=== PATIENT | female | born 1990 | race Caucasian/White ===

== ENCOUNTER 2016-06-24 21:02 | Inpatient (IN) ==
[2016-06-24 21:28] LABS: URINE CULTURE PL NEEDED? NO; URINE SOURCE CLEAN CATCH
[2016-06-24] MEDS ORDERED: NS 1,000 ML IV ONE (21:36)
--- NOTE | 2016-06-24 21:40 | PROVIDER DOCUMENTATION ---
HPI-General Adult - General Chief Complaint: High Blood Sugar Stated Complaint: BLOOD SUGAR ISSUES,FEVER Time Seen by Provider: 06/24/16 21:30 Source: patient Allergies/Adverse Reactions: Patient Allergies Allergy/AdvReac Type Severity Reaction Status Date / Time cefdinir Allergy HIVES Verified 02/27/16 11:05 amoxicillin AdvReac HIVES Verified 06/24/16 21:10 Home Medications: Home Medication List Medication Instructions Recorded Confirmed Last Taken Type Norethindrone-E.estradiol-Iron 1 each PO DAILY 02/27/16 02/27/16 02/27/16 History [Fernanda Fe 1-20 Tablet] Subcutaneous Insulin Pump [Insulin 1.4 units SUBQ ORDERED 02/27/16 02/27/16 02/26/16 History Pump] - History of Present Illness -Gen Adult Nature of Presenting Problems: 25 year old F presents to the ED with a cc of high blood sugar. PT states that her pump malfunctioned today due to her needle being bent. PT states that she called her Director Process Improvement due to her FSBS high and was told to move her pump around and take a shot of insulin. Pt states that she has had some vomiting and urinary frequency today. Severity: reports: mild Onset/Duration: reports: this afternoon Timing: reports: still present Context/Activities at Onset: reports: none Associated Symptoms: reports: vomiting Similar Symptoms Previously?: No Recently seen or treated by another doctor?: No - Diabetes Related Context Context: reports: high blood sugar Review of Systems - Adult - REVIEW OF SYSTEMS - ADULT Constitutional: denies: chills, fever Eyes: reports: no symptoms reported Ears, Nose, Mouth & Throat: reports: no symptoms reported Cardiovascular: reports: no symptoms reported Respiratory: reports: no symptoms reported Gastrointestinal: reports: nausea, vomiting Genitourinary: reports: frequency. denies: dysuria, hematuria Musculoskeletal: denies: muscle aches, muscle weakness Integumentary: denies: skin sores/ulcer, skin thickening Neurological: reports: no symptoms reported Psychiatric: reports: no symptoms reported Endocrine: reports: no symptoms reported Hematologic/Lymphatic: reports: no symptoms reported Allergic/Immunologic: reports: no symptoms reported All Other Systems: Reviewed and Negative Past History - Adult - PAST MEDICAL HISTORY-ADULT Review of Records: reports: Nursing Assessment Review, Medications Reviewed Major Childhood Illnesses: reports: denies history Endocrine/Immune: reports: Diabetes Diabetes controlled by:: Insulin Dependent - PRIOR SURGERIES/PROCEDURES Surgical/Procedure History: reports: orthopedic (extremity) - IMMUNIZATION STATUS Childhood Immunizations: See Nurse Assessment Flu Vaccine: See Nurse Assessment - SOCIAL HISTORY Smoking: non-smoker Substance Use: none/never Alcohol Use Frequency: never Physical Exam-General - PHYSICAL EXAM-ADULT Initial Vital Signs Reviewed: Yes - CONSTITUTIONAL General Appearance: appears well, alert, no apparent distress, obese - RESPIRATORY Respiratory: chest non-tender, lungs clear, normal breath sounds - CARDIOVASCULAR Cardiovascular: normal peripheral pulses, regular rate, rhythm, no edema - GASTROINTESTINAL (ABDOMEN) Abdominal Exam: non tender, soft - MUSCULOSKELETAL Extremity: normal inspection - SKIN Integumentary: normal color, normal turgor, warm/dry - PSYCHIATRIC Psych/Mental Status: normal mood/affect, normal thought content, normal thought process, oriented x 3 Progress - PLAN OF CARE/RESULTS Progress/Plan/Lab Results: plan of care: labs, fluids Orders Category Date Time Status ABG [RESP] Routine Lab 06/24/16 22:12 Completed ACETONE SERUM [CHEM] Stat Lab 06/24/16 22:05 Completed CBC WITH DIFF [HEME] Stat Lab 06/24/16 22:05 Completed COMPREHENSIVE METABOLIC PANEL [CHEM] Stat Lab 06/24/16 22:[address] W/POSS RFLX CULT [URINALYSIS] Stat Lab 06/24/16 21:10 Completed 0.9% Sodium Chloride Inj [Ns] 1,000 ml Med 06/24/16 21:36 Discontinued IV 999 mls/hr Laboratory Tests 06/24/16 06/24/16 06/24/16 21:10 22:05 22:05 WBC 16.24 H RBC 4.84 Hgb 14.7 Hct 42.0 MCV 86.8 MCH 30.4 MCHC 35.0 RDW Std Deviation 12.9 Plt Count 374 MPV 9.3 Immature Gran % (Auto) 0.2 Neut % (Auto) 87.8 H Lymph % (Auto) 8.9 L Daniels % (Auto) 2.9 Eos % (Auto) 0.0 Baso % (Auto) 0.2 Immature Gran # (Auto) 0.04 Neut # (Auto) 14.25 H Lymph # (Auto) 1.45 Daniels # (Auto) 0.47 Eos # (Auto) 0.00 Baso # (Auto) 0.03 Segmented Neutrophils 88 H Band Neutrophils 3 H Lymphocytes 8 L Monocytes 1 Anisocytosis 1+ Specimen Type Sample Site pH pCO2 pO2 HCO3 Base Excess Oxyhemoglobin ABG O2 Sat (Calculated) ABG O2 Saturation ABG Carboxyhemoglobin ABG Methemoglobin Luis Manuel Test A-a O2 Difference Total Hemoglobin Lactate Blood Gas Modality FiO2 % Sodium 129 L Potassium 4.5 Chloride 94 L Carbon Dioxide 14 L Anion Gap 21 BUN 18 Creatinine 0.8 Estimated GFR/1.73 m2 > 60 BUN/Creatinine Ratio 23 Glucose 286 H Calculated Osmolality 271 Calcium 9.4 Total Bilirubin 0.60 AST 12 ALT 22 Alkaline Phosphatase 88 Total Protein 7.6 Albumin 4.1 Globulin 4.0 Albumin/Globulin Ratio 1.0 Urine Source CLEAN CATCH Urine Color YELLOW Urine Clarity CLEAR Urine pH 5.0 Ur Specific [place] 1.020 Urine Protein TRACE A Urine Ketones 3+(Large) A Urine Blood TRACE Urine Nitrite NEGATIVE Urine Bilirubin NEGATIVE Urine Urobilinogen NORMAL Urine Microscopic RBC <10 Urine WBC NEGATIVE Urine Microscopic WBC <10 Ur Epithelial Cells <10 Urine Bacteria 1+ Urine Yeast PRESENT Urine Glucose 3+(500 mg/dL) A Acetone Level 06/24/16 06/24/16 22:05 22:12 WBC RBC Hgb Hct MCV MCH MCHC RDW Std Deviation Plt Count MPV Immature Gran % (Auto) Neut % (Auto) Lymph % (Auto) Daniels % (Auto) Eos % (Auto) Baso % (Auto) Immature Gran # (Auto) Neut # (Auto) Lymph # (Auto) Daniels # (Auto) Eos # (Auto) Baso # (Auto) Segmented Neutrophils Band Neutrophils Lymphocytes Monocytes Anisocytosis Specimen Type ARTERIAL Sample Site R BRACHIAL pH 7.33 L pCO2 31 L pO2 68 HCO3 18.2 L Base Excess -8.4 L Oxyhemoglobin 92.4 L ABG O2 Sat (Calculated) 18.6 ABG O2 Saturation 96.0 ABG Carboxyhemoglobin 2.50 ABG Methemoglobin 1.2 Luis Manuel Test YES A-a O2 Difference 43.0 Total Hemoglobin 14.3 Lactate 1.10 Blood Gas Modality ROOM AIR FiO2 % 21.0 Sodium Potassium Chloride Carbon Dioxide Anion Gap BUN Creatinine Estimated GFR/1.73 m2 BUN/Creatinine Ratio Glucose Calculated Osmolality Calcium Total Bilirubin AST ALT Alkaline Phosphatase Total Protein Albumin Globulin Albumin/Globulin Ratio Urine Source Urine Color Urine Clarity Urine pH Ur Specific [place] Urine Protein Urine Ketones Urine Blood Urine Nitrite Urine Bilirubin Urine Urobilinogen Urine Microscopic RBC Urine WBC Urine Microscopic WBC Ur Epithelial Cells Urine Bacteria Urine Yeast Urine Glucose Acetone Level MODERATE A Vital Signs - 24 hr 06/24/16 21:06 Temperature 98 F Pulse Rate 96 H Respiratory 18 Rate Blood Pressure 156/91 O2 Sat by Pulse 100 Oximetry Pt/Family given results. Pt will be admitted to the [facility]. PT/Family in agreement with plan of care. - CONSULTS/PCP/HOSPITALIST Notification #1 *Consult/PCP/Hospitalist*: Dr. Morgan- [facility] [place] Time Discussed: 23:09 Consult Disposition: Admit Attestation - Scribe Verification/Attestation Scribe:: Karen Sheppard Acting as Scribe for:: Delmar Davis Scribe documention review:: This chart was documented by a scribe and accurately reflects the service the provider performed and the decisions made by the provider. Physician Attestation - Physician Attestation I, the provider, attest to the following statement:: Delmar Davis Physician documentation Attestation:: This documentation recorded by the scribe accurately reflects the service I personally performed and the decisions made by me.
[2016-06-24 21:54] LABS: BILIRUBIN URINE NEGATIVE (NEGATIVE); BLOOD URINE TRACE (NEGATIVE); CLARITY CLEAR (CLEAR); COLOR YELLOW; LEUKOCYTES URINE NEGATIVE (NEGATIVE); NITRITE URINE NEGATIVE (NEGATIVE); PROTEIN URINE TRACE mg/dL (NEGATIVE); UROBILINOGEN URINE NORMAL
[2016-06-24 21:56] LABS: URINE WBC <10 /HPF (<10)
[2016-06-24 21:57] LABS: URINE EPITHELIAL CELLS <10 /HPF (<10); URINE RBC <10 /HPF (<10)
[2016-06-24 22:28] LABS: AGAP 21; ALBUMIN 4.1 g/dL (3.5-5.0); ALKALINE PHOSPHATASE 88 U/L (32-104); BUN 18 mg/dL (8-22); CALCIUM 9.4 mg/dL (8.8-10.2); CHLORIDE 94 mmol/L (98-107); COSMO 271; GOT 12 U/L (10-30); GPT 22 U/L (10-36); POTASSIUM 4.5 mmol/L (3.5-5.1); SODIUM 129 mmol/L (136-145); TCO2 14 mmol/L (25-35); TOTAL PROTEIN 7.6 g/dL (6.3-8.3)
[2016-06-24 22:51] LABS: BASO% 0.2 % (0.0-0.8); HEMOGLOBIN 14.7 g/dL (12.0-16.0); IMM GRAN# 0.04 X1000 (0.0-0.04); IMM GRAN% 0.2 % (0.0-0.5); LYMPH# 1.45 X1000 (1.2-3.4); LYMPH% 8.9 % (20.5-51.1); MANUAL DIFF NEEDED? YES; MCH 30.4 PG (27-31); MCV 86.8 FL (81-99); MONO# 0.47 X1000 (0.11-0.59); MONO% 2.9 % (1.7-9.3); MPV 9.3 FL (7.4-10.4); NEUT% 87.8 % (42.2-75.2); PLT 374 X1000 (130-400); RBC 4.84 XMIL (4.2-5.4)
[2016-06-24 22:52] LABS: BANDS 3 % (0-1); LYMPHS 8 % (21-51); MONO 1 % (1-9)
[2016-06-24 22:58] LABS: BE -8.4 mmoll (-3.0-3.0); BLOOD TYPE ARTERIAL; DRAW SITE R BRACHIAL; METHB 1.2 % (0.0-1.5); O2(CT) 18.6 mL/dL (15.0-23.0); PCO2(98.6) 31 mmHg (35-45); PO2(98.6) 68 mmHg (60-100); SAMPLE BLOOD; THB 14.3 g/dL (11.5-17.4); pH(98.6) 7.33 (7.35-7.45)
[2016-06-24 23:01] LABS: ALLEN TEST YES; MODALITY ROOM AIR
[2016-06-24] MEDS ORDERED: ZOFRAN IV PRN (23:12)
[2016-06-24] MEDS ORDERED: NS 1,000 ML IV SCH (23:15)
[2016-06-24] MEDS ORDERED: NS 1,000 ML ONE (23:25)
[2016-06-24] MEDS ORDERED: HUMULIN R DOSE (PARKWAY) ONE (23:27)
[2016-06-24] MEDS ORDERED: NS 100 ML ONE (23:28)
[2016-06-24] MEDS ORDERED: HUMULIN R (PARKWAY) 100 UNITS in NS 100 ML IV SCH (23:45)
[2016-06-24] MEDS ORDERED: NORCO-5 PO ONE (23:50)
[2016-06-25] MEDS ORDERED: SODIUM PHOSPHATE 30 MMOL in D5W 250 ML IV PRN (01:13)
[2016-06-25] MEDS: NS 1,000 ML IV SCH ×7 (01:13→14:53)
[2016-06-25] MEDS ORDERED: SODIUM BICARBONATE 8.4% 100 MEQ in D5W 500 ML IV PRN (01:13)
[2016-06-25] MEDS ORDERED: SODIUM BICARBONATE 8.4% 50 MEQ in D5W 250 ML IV PRN (01:13)
[2016-06-25] MEDS ORDERED: MAGNESIUM SULFATE 2 GM/S.W.I. 50 ML IV PRN (01:13)
[2016-06-25] MEDS ORDERED: TYLENOL PO PRN (01:13)
[2016-06-25] MEDS ORDERED: D50W SYRINGE IV PRN (01:13)
[2016-06-25] MEDS ORDERED: ZOFRAN IV PRN (01:13)
[2016-06-25] MEDS ORDERED: HUMULIN R 100 UNIT in NS 99 ML IV SCH (01:13)
[2016-06-25] MEDS ORDERED: POTASSIUM CHLORIDE 20 MEQ/SWI 100 ML IV PRN ×2 (01:36→01:40)
[2016-06-25 02:30] LABS: BE -5.8 mmoll (-3.0-3.0); BLOOD TYPE ARTERIAL; DRAW SITE R BRACHIAL; METHB 0.9 % (0.0-1.5); O2(CT) 17.5 mL/dL (15.0-23.0); PCO2(98.6) 32 mmHg (35-45); PO2(98.6) 110 mmHg (60-100); SAMPLE BLOOD; SAO2 99.6 % (95.0-100.0); THB 12.8 g/dL (11.5-17.4); pH(98.6) 7.37 (7.35-7.45)
[2016-06-25 02:32] LABS: ALLEN TEST YES; MODALITY ROOM AIR
[2016-06-25] MEDS: D5 NS + KCL 20 MEQ 1,000 ML IV SCH ×3 (02:33→13:32)
[2016-06-25 02:49] LABS: HEMOGLOBIN A1C 8.5 % (4.8-6.0)
[2016-06-25 03:04] LABS: MAGNESIUM 1.6 mg/dL (1.5-2.7)
[2016-06-25 03:06] LABS: AGAP 11; BUN 14 mg/dL (8-22); CALCIUM 7.7 mg/dL (8.8-10.2); CHLORIDE 106 mmol/L (98-107); COSMO 272; SODIUM 133 mmol/L (136-145); TCO2 16 mmol/L (25-35)
[2016-06-25 06:28] LABS: AGAP 9; BUN 13 mg/dL (8-22); CALCIUM 7.6 mg/dL (8.8-10.2); CHLORIDE 105 mmol/L (98-107); COSMO 270; MAGNESIUM 2.5 mg/dL (1.5-2.7); POTASSIUM 4.1 mmol/L (3.5-5.1); SODIUM 132 mmol/L (136-145); TCO2 18 mmol/L (25-35)
[2016-06-25 10:54] LABS: AGAP 11; BUN 13 mg/dL (8-22); CALCIUM 7.7 mg/dL (8.8-10.2); CHLORIDE 104 mmol/L (98-107); COSMO 277; MAGNESIUM 2.2 mg/dL (1.5-2.7); POTASSIUM 3.7 mmol/L (3.5-5.1); SODIUM 134 mmol/L (136-145); TCO2 19 mmol/L (25-35)
[2016-06-25 15:18] LABS: AGAP 10; BUN 14 mg/dL (8-22); CALCIUM 7.9 mg/dL (8.8-10.2); CHLORIDE 105 mmol/L (98-107); COSMO 280; POTASSIUM 3.8 mmol/L (3.5-5.1); SODIUM 135 mmol/L (136-145); TCO2 20 mmol/L (25-35)
[2016-06-25 15:27] VITALS: BP 103/67
--- NOTE | 2016-06-25 16:49 | HISTORY AND PHYSICAL ---
PRIMARY CARE PHYSICIAN: Dr. Delgadillo. CHIEF COMPLAINT: High blood sugar. HISTORY OF PRESENTING ILLNESS: This is a 25-year-old female, who presented to the emergency department stating her sugar was high and that her pump had malfunctioned earlier in the day due to her needle being bent. She had called her staff counsel and he told her to move the pump around and take a shot of insulin. States that she had vomiting and urinary frequency. So, she came to the emergency room for evaluation. When she arrived, she had a white blood cell count of 16.24. Sodium was 129, chloride 94. Blood sugar was 286. She had moderate acetone. She was placed initially on an insulin drip and was admitted to the intensive care unit for further evaluation and treatment. PAST MEDICAL HISTORY: Type 1 diabetes. PAST SURGICAL HISTORY: Finger surgery in 2011. FAMILY HISTORY: Her dad is a type 1 diabetic. SOCIAL HISTORY: She currently lives with family. Denied any tobacco, alcohol, or illicit drug use. ALLERGIES: Cefdinir and amoxicillin. HOME MEDICATIONS: She takes Fernanda Fe 1-20 one p.o. daily. Insulin pump as directed. LABORATORY DATA: Showed a white blood cell count of 16.24, hemoglobin 14.7, hematocrit 42, platelets 374. ABG showed a pH of 7.33, pCO2 of 31, PO2 68, bicarbonate of 18.2. Sodium was 129, potassium 4.5, chloride 94, CO2 14, BUN of 18, creatinine 0.8, glucose 286. Amylase of 35 with a lipase of 16. Magnesium was 1.6. Hemoglobin A1c was 8.5. Urinalysis showed 3+ ketones, negative nitrites, negative white blood cells, 1+ bacteria, 3+ glucose and yeast, and her acetone level was moderate. REVIEW OF SYSTEMS: She denied any fever, chills, blurred vision, dizziness, chest pain, coughing, shortness of breath. She was positive for some vomiting and urinary frequency when she first came in. PHYSICAL EXAMINATION: VITAL SIGNS: On arrival, her temperature was 98 degrees, with a pulse of 96, respirations 18, blood pressure 156/91, satting 100% on room air. GENERAL: This is a 25-year-old female, who is lying in the bed, answers questions appropriately. HEENT: Normocephalic and atraumatic. Pupils are equal, round, reactive to light. Extraocular movements are intact. Oropharynx and nares are clear. NECK: Supple. LUNGS: Clear to auscultation bilaterally with equal lung expansion and chest wall movement. HEART: With regular rate and rhythm. No murmurs, rubs, or gallops. ABDOMEN: Soft, nontender, nondistended. Bowel sounds are present x4 quadrants. EXTREMITIES: No clubbing, cyanosis, or edema. NEUROLOGICAL: The cranial nerves 2-12 are grossly intact. ASSESSMENT: 1. Diabetic ketoacidosis. 2. Type 1 diabetes with hyperglycemia. 3. Leukocytosis. PLAN: She was admitted to the intensive care unit. Placed on insulin drip initially with Zofran 4 mg IV every 6 hours p.r.n. We will recheck labs according to the DKA protocol and follow. Dictated by DESTINEE Hyman for Cruz Morgan MD
--- NOTE | 2016-06-26 14:36 | DISCHARGE SUMMARY ---
ADMISSION DATE: 06/24/2016 DISCHARGE DATE: 06/25/2016 ADMISSION DIAGNOSES: 1. Diabetic ketoacidosis. 2. Diabetes type 1 with hyperglycemia. 3. Leukocytosis. DISCHARGE DIAGNOSES: 1. Diabetic ketoacidosis. Resolved. 2. Diabetes type 1 with hyperglycemia. Improved. 3. Leukocytosis. SUMMARY OF FINDINGS: This is a 25-year-old female who presented to [facility] ER after she states that her insulin pump needle had bent and she was not receiving the correct dosage of her insulin per the pump. She notified her director network development, who told her to remove her and bolus, but she continued to have some elevated blood sugars, vomiting, polyuria, polydipsia, and so she came to the emergency room. Was found to be in DKA per her labs with moderate acetone. She was initially placed on the DKA protocol. She did well with that. We restarted her insulin pump and stopped the drip. She has tolerated her diet. Her blood sugar currently is 263. She bolused appropriately. Her acetone level shows negative at this time and it is felt that she can safely be discharged home. DISCHARGE MEDICATIONS: She was given a prescription for Ketostix strips for her diabetes, and for Zofran ODT 4 mg p.o. q.4 hours p.r.n. #60 with 4 refills. She will continue her Fernanda Fe 05/01 one p.o. daily, and her insulin pump per orders. FOLLOWUP: She will need to follow up with her director network development as scheduled. DISCHARGE TIME: This has been a 35 minute discharge. Dictated by DESTINEE Hyman for Cruz Morgan MD
== END 2016-06-25 16:25 | disposition home or self-care (01) | DRG 639 ==
LOC: P.ED 21:02 → P.ICU 21:03
PROVIDERS: ATTEND Internal Medicine
DX: E10.10 Type 1 diabetes mellitus with ketoacidosis without coma (principal); E83.39 Other disorders of phosphorus metabolism; E83.51 Hypocalcemia; Z83.3 Family history of diabetes mellitus; Z96.41 Presence of insulin pump (external) (internal)
CPT/HCPCS: 80048; 80053; 81001; 82009; 82150; 82550; 82805; 82948; 83036; 83690; 83735; 84100; 84484; 84703; 85025; 96360; 96361; J1815; J3475; J3480; J7030